=== PATIENT | female | born 1990 | race Caucasian/White ===

== ENCOUNTER 2017-04-07 07:49 | Inpatient (IN) | payer MEDICAID ==
[~2017-04-07 07:49] MED LIST: HYDR453.2 TOP; IBUP-1542 PO; TRAM50TA2 PO
[2017-04-07] MEDS ORDERED: LACTATED RINGER'S 1,000 ML IV SCH ×4 (08:05→08:45)
[2017-04-07] MEDS ORDERED: LACTATED RINGER'S 1,000 ML IV PRN ×4 (08:30→08:45)
[2017-04-07] MEDS ORDERED: CARBOPROST 250 MCG INJ IM PRN ×5 (08:30→12:30)
[2017-04-07] MEDS ORDERED: OXYTOCIN 30 UNITS/LR 500 ML IV SCH ×9 (08:30→11:30)
[2017-04-07] MEDS ORDERED: BUTORPHANOL 2 MG INJ IV PRN ×8 (08:30→08:45)
[2017-04-07] MEDS ORDERED: LIDOCAINE 1% (MPF) 30 ML INJ INJ PRN ×4 (08:30→08:45)
[2017-04-07] MEDS ORDERED: METHYLERGONOVINE 0.2 MG INJ IM PRN ×5 (08:30→12:30)
[2017-04-07] MEDS ORDERED: OXYTOCIN 30 UNITS/LR 500 ML IV PRN ×5 (08:30→12:30)
[2017-04-07] MEDS ORDERED: MISOPROSTOL 200 MCG TAB PR PRN ×5 (08:30→12:30)
[2017-04-07 08:32] LABS: BASOPHILS % 0.1 % (0.0-2.0); EOSINOPHILS % 0.4 % (0.0-7.0); HEMOGLOBIN 12.8 g/dl (12.0-16.0); LYMPHOCYTES % 22.8 % (15.0-51.0); MEAN CORPUSCULAR HEMOGLOBIN 27.2 pg (29.0-33.0); MEAN CORPUSCULAR HGB CONC 32.8 g/dl (32.0-37.0); MEAN CORPUSCULAR VOLUME 82.8 fl (82.0-101.0); MEAN PLATELET VOLUME 11.7 fl (7.4-10.4); MONOCYTE # 0.6 10^3/ul (0.3-0.9); MONOCYTES % 6.4 % (0.0-11.0); NEUTROPHIL # 6.2 10^3/ul (1.6-7.5); NEUTROPHILS % 69.6 % (39.0-77.0); PLATELET COUNT 182 10^3/UL (140-415); RED BLOOD COUNT 4.71 10^6/ul (4.20-5.40); WHITE BLOOD COUNT 8.9 10^3/ul (4.8-10.8)
[2017-04-07 08:44] LABS: INR 0.98
[2017-04-07 08:45] LABS: PARTIAL THROMBOPLASTIN TIME 26.8 Sec (25.0-35.0)
--- NOTE | 2017-04-07 09:40 | RADRPT ---
PROCEDURE: US OB. CLINICAL INDICATION: Low DWAYNE , pain TECHNIQUE: Transabdominal views of the pelvis are available for review. COMPARISON: No prior studies are available for comparison. FINDINGS: There is a single intrauterine gestation in a vertex position. The heart rate is noted at 130 bpm. The placenta is anterior. There is no evidence of placental abruption or previa. RPTAT: AA IMPRESSION: Vertex position. The placenta is anterior. There is no evidence of placental abruption or previa. .Jose Silveira MD, MD Date Time Electronically viewed and signed by .Jose Silveira MD, on 04/07/2017 09:40 .S/
--- NOTE | 2017-04-07 09:50 | HP ---
Date/Time of Note Date/Time of Note DATE: 04/07/17 TIME: 09:44 OB - History Hx of Present Free Text/Dictation 26 years old female EDC April 23 admitted to [facility] in active labor pelvic examination and admission cervix 6- 7 cm dilated 100% effaced vertex at -2 station intact membrane with a bulging bag patient transferred from triage to L&D anticipating vaginal delivery Chief Complaint: Labor contraction Estimated Due Date: Apr 23, 2017 : 4 Para: 3 Care: Good Care Ultrasounds: Normal mid trimester US Obstetrical Complications: None Medical Complications: None Past Family/Social History * Past Medical, Surgical, Family and Obstetric Histories reviewed from chart. Rubella: immune RPR/VDRL: Negative GBS Status: Negative HBsAG: Negative OB Admission Exam Physical Exam HEENT: WNL Heart: Rhythm Normal Lungs: Clear, Equal Abdomen: WNL Extremities: Normal Reflexes: Normal Cervical Dilatation: 6cm Effacement: 100% Station: -2 Membranes: Intact Heart Rate: 130's Accelerations: Accelerations Present Decelerations: Early Decelerations Varibility: Moderate Contractions on Admission: < 5 Minutes Apart Intensity: Firm Last 72 hours Lab Results CBC & BMP 04/07/17 07:55 OB Assessment/Plan Reason for admission: active labor Other plan: 26 years old EDC April 23, 2017, 37 weeks and 5 days admitted to the L& D at [facility] in active labor, pelvic examination on admission cervix 6-7 cm dilated 100% effaced vertex at -2 station intact membrane bulging bag, patient transferred from triage to L&D anticipating vaginal delivery. ANABEL KWON MD Apr 07, 2017 09:50
--- NOTE | 2017-04-07 12:25 | LDN ---
Date/Time of Note Date/Time of Note DATE: 04/07/17 TIME: 12:20 Delivery Summary Normal spontaneous vaginal delivery of a baby boy from OA position shoulders delivered without difficulty rest of the baby's body followed, baby had cord around the ankle, cord clamped after stopped pulsation, placenta spontaneous expulsion inspected complete, perineal vaginal exam no laceration, estimated blood loss 200 cc Weeks of Gestation 37 weeks 5 days Placenta Delivered: Spontaneously Meconium: none Episiotomy: No Laceration repair: None Anesthesia type: None Sponge & Needle done & correct: Yes All needle counts correct: Yes Any foreign bodies felt in the: No Problems: Delivery Information Sex Infant Sex: male Apgars 1 Minute: 8 5 Minute: 9 Suctioning Nose & mouth suctioned at talya: Yes Delee suction performed: No Umbilical Cord Umbilical cord with: 3 Vessels Cord presentations: nuchal cord Nuchal cord present X: 1 Cord Blood was obtained: Yes ANABEL KWON MD Apr 07, 2017 12:24
[2017-04-07] MEDS ORDERED: LACTATED RINGER'S 1,000 ML IV* SCH (12:30)
[2017-04-07] MEDS ORDERED: LANOLIN 7 GM TUBE TOP PRN ×2 (13:00→13:30)
[2017-04-07] MEDS ORDERED: BENZOCAINE 20% 56 ML SPRAY TOP PRN ×2 (13:00→13:30)
[2017-04-07] MEDS ORDERED: ONDANSETRON 4 MG INJ IV PRN ×2 (13:00→13:30)
[2017-04-07] MEDS ORDERED: HYDROCODONE/APAP (5/325) TAB PO PRN ×4 (13:00→13:30)
[2017-04-07] MEDS ORDERED: DIBUCAINE 1% 30 GM OINT PR PRN ×2 (13:00→13:30)
[2017-04-07] MEDS ORDERED: OXYCODONE/ASPIRIN (4.88/325) TAB PO PRN ×4 (13:00→13:30)
[2017-04-07] MEDS ORDERED: ACETAMINOPHEN 325 MG TAB PO PRN ×2 (13:00→13:30)
[2017-04-07] MEDS ORDERED: WITCH HAZEL/GLYCERIN PAD PR PRN ×2 (13:00→13:30)
[2017-04-07 14:00] VITALS: BP 123/65; PULSE 68; RESP 18
[2017-04-07 14:50] VITALS: BP 120/75; PULSE 72; RESP 20
[2017-04-07 16:00] VITALS: BP 109/67; PULSE 64; RESP 19
[2017-04-07] MEDS: OXYTOCIN 30 UNITS/LR 500 ML IV SCH ×3 (16:04→21:32)
[2017-04-07] MEDS: IBUPROFEN 600 MG TAB PO SCH ×3 (17:33→23:40)
[2017-04-07 20:00] VITALS: BP 112/67; PULSE 71; RESP 19
[2017-04-07] MEDS: SENNA/DOCUSATE NA (8.6MG/50MG) TAB PO SCH ×2 (21:00)
[2017-04-08] MEDS: OXYTOCIN 30 UNITS/LR 500 ML IV SCH (01:16)
[2017-04-08 04:15] VITALS: BP 92/51; PULSE 74; RESP 18
[2017-04-08] MEDS: IBUPROFEN 600 MG TAB PO SCH ×8 (05:38→23:22)
[2017-04-08 08:10] VITALS: BP 102/52; PULSE 81; RESP 18
[2017-04-08 08:32] LABS: BASOPHILS % 0.2 % (0.0-2.0); EOSINOPHILS # 0.1 10^3/ul (0.0-0.5); EOSINOPHILS % 0.8 % (0.0-7.0); HEMATOCRIT 34.8 % (37.0-47.0); HEMOGLOBIN 11.4 g/dl (12.0-16.0); LYMPHOCYTES # 2.3 10^3/ul (0.8-2.9); LYMPHOCYTES % 22.2 % (15.0-51.0); MEAN CORPUSCULAR HEMOGLOBIN 27.3 pg (29.0-33.0); MEAN CORPUSCULAR HGB CONC 32.8 g/dl (32.0-37.0); MEAN CORPUSCULAR VOLUME 83.5 fl (82.0-101.0); MEAN PLATELET VOLUME 11.9 fl (7.4-10.4); MONOCYTE # 0.5 10^3/ul (0.3-0.9); MONOCYTES % 5.1 % (0.0-11.0); NEUTROPHIL # 7.3 10^3/ul (1.6-7.5); PLATELET COUNT 162 10^3/UL (140-415); RED BLOOD COUNT 4.17 10^6/ul (4.20-5.40); RED CELL DISTRIBUTION WIDTH 14.5 % (11.5-14.5); WHITE BLOOD COUNT 10.3 10^3/ul (4.8-10.8)
[2017-04-08] MEDS: SENNA/DOCUSATE NA (8.6MG/50MG) TAB PO SCH ×4 (09:00→21:42)
--- NOTE | 2017-04-08 09:29 | QN ---
Documentation Comment day 1 Afebrile Vital signs are stable Abdomen soft Uterus firm Lochia normal Remedies normal ANABEL KWON MD Apr 08, 2017 09:29
[2017-04-08 16:00] VITALS: BP 97/52; PULSE 77; RESP 18
[2017-04-08 20:00] VITALS: BP 100/62; PULSE 74; RESP 20
[2017-04-09 03:22] VITALS: BP 105/59; PULSE 70; RESP 20
[2017-04-09] MEDS: IBUPROFEN 600 MG TAB PO SCH ×5 (05:26→11:59)
[2017-04-09] MEDS: SENNA/DOCUSATE NA (8.6MG/50MG) TAB PO SCH ×2 (08:26→09:00)
[2017-04-09 08:27] VITALS: BP 103/56; PULSE 78; RESP 19
[2017-04-09] MEDS ORDERED: MEASLES,MUMPS,RUBELLA VACCINE INJ SC* ONE ×2 (09:00)
--- NOTE | 2017-04-09 09:36 | PD.PPDC ---
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
--- NOTE | 2017-04-09 09:42 | DS ---
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 Home Meds Active Scripts Ibuprofen* (Motrin*) 600 Mg Tab, 600 MG PO Q6H Y for PAIN AND OR ELEVATED TEMP, #30 TAB Prov:ANNETTE KIRKLAND PA-C 02/14/16 Ibuprofen* (Motrin*) 600 Mg Tab, 600 MG PO Q6, #20 TAB Prov:PERLA MAGAÑA MD 02/08/16 Tramadol HCl (Tramadol HCl) 50 Mg Tablet, 50 MG PO Q4 Y for PAIN, #20 TAB Prov:PERLA MAGAÑA MD 02/08/16 Hydrocortisone* Topical (Hydrocortisone* Topical) 1%-28.3 Gm Oint, 1 APPLIC TOP BID Y for ITCHING, #1 TUB Prov:DWAYNE RAE NP 10/31/15 Follow-up Plan instructions given recommended to make appointment to be seen at the clinic in 2 weeks Primary Care Provider Care Physician No Primary Time spent on discharge: < 30 minutes ANABEL KWON MD Apr 09, 2017 09:42
== END 2017-04-09 14:15 | disposition home or self-care (01) | DRG 775 ==
LOC: L-D 07:49 → OBT 07:49 → L-D 07:52 → OBT 07:52 → UNDOADMIN 07:54 → L-D 07:54 → OBT 07:54 → PP1 14:05 → EDSTATUS 04-23 08:42
PROVIDERS: ADMIT Obstetrics & Gynecology; ATTEND Obstetrics & Gynecology
PROC: 10E0XZZ Delivery of Products of Conception, External Approach (ICD-10-PCS; principal; 2017-04-07)
DX: O69.89X0 Labor and delivery complicated by other cord complications, not applicable or unspecified (principal); Z37.0 Single live birth; Z3A.37 37 weeks gestation of pregnancy
CPT/HCPCS: 76815; 85025; 85610; 85730; 86592; 86900; 86901; 99464; A4310; J0595; J2590; J7120

== ENCOUNTER 2018-12-24 13:46 | Outpatient (CLI) | payer MEDICAID ==
[~2018-12-24] VITALS: Ht 139.7 cm; Wt 74.0 kg
[~2018-12-24 13:46] MED LIST changes: +DOCU-144 PO; +PNV11TAB PO; -TRAM50TA2 PO
[2018-12-24 14:26] VITALS: Ht 139.7 cm; Wt 74.0 kg
[2018-12-24 14:30] VITALS: BP 117/65; PULSE 89; RESP 19
--- NOTE | 2018-12-24 16:27 | TRIAGE ---
OB Triage Datetime Report Generated by CPN: 12/24/2018 16:26 Datetime: 12/24/2018 15:59 Labor Evaluation Frequency: IRREGULAR Monitor Mode: External Duration (sec)2399: 60 Quality: Mild Pattern: Normal: <= 5 Contractions in 10 Minutes Intensity IUP (mmHg): 300 Resting Tone [place]: Relaxed Heart Rate FHR Baseline Rate: 130 Monitor Mode: External US Variability: Moderate 6-25 bpm Accelerations: 15X15 Decelerations: None Category: Category I Datetime: 12/24/2018 15:58 Vaginal Exam Dilatation (cms): 0.0 Effacement (%): 0 Station: -3 Exam By: Michael MASTEROMARALEXIS Datetime: 12/24/2018 14:37 Assessment Type: Triage Maternal Assessment Level of Consciousness: Keenly Alert, Responsive DTR's/Clonus: DTRs 2+; No Clonus Headache: Denies Blurred Vision: No Respiratory Effort: Unlabored; Regular Rhythm; Equal Expansion Breath Sounds, Left: Clear and Equal Breath Sounds, Right: Clear and Equal Nausea/Vomiting: Denies RUQ Epigastric Pain: Denies Lower Extremities Edema: None Degree: None Upper Extremities Edema: None Degree: None Facial Edema: None Fall Risk Assessment History of Falling: (0) No Secondary Diagnosis: (0) No Ambulatory Aid: (0) Bedrest/Nurse Assist IV Therapy: (0) No Gait: (0) Normal/Bedrest/Immobile Mental Status: (0) Oriented to Own Ability Fall Score: 0 Fall Risk Score Definition: No Risk: No action required Datetime: 12/24/2018 14:35 Time of Arrival: 12/24/2018 13:39 EGA: 38.3 Arrived By: Ambulatory Arrived From: Office Chief Complaint: R/O DVT AND LABOR Movement: Present Contractions: Denies/Absent Rupture of Membranes: Denies Vaginal Bleeding: None Vaginal Discharge: Denies Recent Sexual Intercouse: Denies Abdominal Trauma: Not Applicable Patient Complaints: Other Time Provider Notified: 12/24/2018 15:58 Provider Notified: DR HARRIS Initial Plan: NST BPP AND DOPPLER STUDY
--- NOTE | 2018-12-25 02:20 | PN ---
Triage Information Date/Time Reason for visit: Vaginal uterine contractions and rule out DVT Weeks of Gestation 38 weeks and 3 days /Para -0-0-4 Diabetes: none Hypertention: none Objective Vital Signs Date Temp Pulse Resp B/P (MAP) Pulse Ox O2 O2 Flow FiO2 Time Delivery Rate 12/24/18 98.5 89 19 117/65 High Flow 14:30 (82) Heart Rate: 130's Contractions: 6-10 Minutes Apart Disposition: Discharge Assessment/Plan 28 years old -0-0-4 with single intrauterine at 38 weeks and 3 days referred from clinic for rule out labor and DVT for bilateral lower extremity edema. She states good movement. She denies nausea, vomiting, shortness of breath, chest pain, headache, visual changes, vaginal bleeding or LOF. -FHR: No sign of metabolic acidosis- Category I -Contractions: Irregular -SVE: Closed/soft/-3/cephalic/intact, no cervical changes in repeat exam -Ultrasound performed: Normal DWAYNE, BPP 8 out of 8 -Symptoms and sign of labor, preeclampsia, kick count discussed with patient, she voiced understanding. All of her questions answered. -Patient was discharged home in stable condition with the appropriate discharge instructions provided. I would like patient to have close follow-up with her primary physician or outpatient clinic in 1-2 days or return to triage for worsening symptoms or any other urgent concerns. TODD HARRIS Dec 25, 2018 02:20
== END 2018-12-24 16:30 | disposition home or self-care (01) ==
LOC: OBT 13:46 → L-D 13:46 → OBT 16:30
PROVIDERS: ATTEND Obstetrics & Gynecology
DX: O47.1 False labor at or after 37 completed weeks of gestation (principal); Z3A.38 38 weeks gestation of pregnancy
CPT/HCPCS: 76818; 93970; Z7500; G0463

== ENCOUNTER 2018-12-29 16:21 | Inpatient (IN) | payer MEDICAID ==
[~2018-12-29] VITALS: Ht 142.2 cm; Wt 74.3 kg
[~2018-12-29 16:21] MED LIST changes: -HYDR453.2 TOP
[2018-12-29 17:05] VITALS: Ht 142.2 cm; Wt 74.3 kg
[2018-12-29 17:06] VITALS: BP 119/63; PULSE 113; RESP 18
--- NOTE | 2018-12-29 20:00 | TRIAGE ---
OB Triage Datetime Report Generated by CPN: 12/29/2018 20:00 Datetime: 12/29/2018 19:51 Vaginal Exam Dilatation (cms): 3.0 Effacement (%): 50 Station: -3 Exam By: Dr Reiche Datetime: 12/29/2018 19:16 Labor Evaluation Frequency: x3 Monitor Mode: External Duration (sec)2399: 60-100 Quality: Mild Resting Tone [place]: Relaxed Heart Rate FHR Baseline Rate: 135 Monitor Mode: External US FHR Baseline Changes: No Baseline Change Variability: Moderate 6-25 bpm Accelerations: 15X15 Decelerations: None Category: Category I Datetime: 12/29/2018 19:12 Membrane Status: Intact Datetime: 12/29/2018 18:15 Labor Evaluation Frequency: x1 Monitor Mode: External Duration (sec)2399: 110 Quality: Mild Resting Tone [place]: Relaxed Heart Rate FHR Baseline Rate: 135 Monitor Mode: External US FHR Baseline Changes: No Baseline Change Variability: Moderate 6-25 bpm Accelerations: 15X15 Decelerations: None Category: Category I Datetime: 12/29/2018 17:12 Stage of : OB Triage Assessment Type: Triage Maternal Assessment Level of Consciousness: Keenly Alert, Responsive DTR's/Clonus: DTRs 2+; No Clonus Headache: Denies Blurred Vision: No Respiratory Effort: Unlabored; Regular Rhythm; Equal Expansion Breath Sounds, Left: Clear and Equal Breath Sounds, Right: Clear and Equal Nausea/Vomiting: Denies RUQ Epigastric Pain: Denies Lower Extremities Edema: Bilateral Lower Extremities Degree: 1+ Upper Extremities Edema: None Degree: None Facial Edema: None Temperature Route: Oral Fall Risk Assessment History of Falling: (0) No Secondary Diagnosis: (0) No Ambulatory Aid: (0) Bedrest/Nurse Assist IV Therapy: (0) No Gait: (0) Normal/Bedrest/Immobile Mental Status: (0) Oriented to Own Ability Fall Score: 0 Fall Risk Score Definition: No Risk: No action required Labor Evaluation Frequency: x1 Monitor Mode: External Duration (sec)2399: 50 Quality: Mild Resting Tone [place]: Relaxed Heart Rate FHR Baseline Rate: 135 Monitor Mode: External US FHR Baseline Changes: No Baseline Change Variability: Moderate 6-25 bpm Accelerations: 15X15 Decelerations: None Category: Category I Pain Assessment Pain Scale: 0 Pain Presence: None/Denies Pain Type: N/A Datetime: 12/29/2018 17:10 Time of Arrival: 12/29/2018 16:14 EGA: 39.1 Arrived By: Ambulatory Arrived From: Office Chief Complaint: pt is here from the office for macrosomia Movement: Present Contractions: Denies/Absent Rupture of Membranes: Denies Vaginal Bleeding: None Vaginal Discharge: Denies Recent Sexual Intercouse: Denies Abdominal Trauma: Not Applicable Patient Complaints: None Time Provider Notified: 12/29/2018 19:50 Provider Notified: Dr Boudreaux Initial Plan: NST Datetime: 12/24/2018 14:37 Fall Score: 0 Fall Risk Score Definition: No Risk: No action required Datetime: 12/24/2018 14:35 EGA: 38.3
[2018-12-29] MEDS ORDERED: OXYTOCIN 30 UNITS/LR 500 ML IV PRN (20:30)
[2018-12-29] MEDS ORDERED: IBUPROFEN 600 MG TAB PO PRN (20:30)
[2018-12-29] MEDS ORDERED: BUTORPHANOL 2 MG INJ IV PRN (20:30)
[2018-12-29] MEDS ORDERED: METHYLERGONOVINE 0.2 MG INJ IM PRN (20:30)
[2018-12-29] MEDS ORDERED: OXYTOCIN 30 UNITS/LR 500 ML IV SCH ×3 (20:30)
[2018-12-29] MEDS ORDERED: OXYCODONE/ASPIRIN (4.88/325) TAB PO PRN (20:30)
[2018-12-29] MEDS ORDERED: MISOPROSTOL 200 MCG TAB PR PRN (20:30)
[2018-12-29] MEDS ORDERED: LIDOCAINE 1% (MPF) 30 ML INJ INJ PRN (20:30)
[2018-12-29] MEDS ORDERED: CARBOPROST 250 MCG INJ IM PRN (20:30)
[2018-12-29] MEDS: LACTATED RINGER'S 1,000 ML IV SCH (20:54)
[2018-12-29] MEDS ORDERED: ACETAMINOPHEN 500 MG TAB PO STA (21:54)
[2018-12-30] MEDS: LACTATED RINGER'S 1,000 ML IV SCH ×2 (05:06→22:21)
[2018-12-30] MEDS: BUTORPHANOL 2 MG INJ IV PRN ×2 (08:00→20:38)
--- NOTE | 2018-12-30 14:08 | PREAC ---
Date/Time of Note Date/Time of Note DATE: 12/30/18 TIME: 14:07 Anesthesia Eval and Record Evaluation Time Pre-Procedure Interview DATE: 12/30/18 TIME: 14:07 Age 28 Sex female NPO: Other Preoperative diagnosis labor pain Planned procedure epidural Past Medical History Past Medical History: None Surgery & Anesthesia Issues No known issue Meds Anticoagulation: No Beta Neto within 24 hr: No Reason Beta Neto not given: Pt. not on B-Neto Reported Medications [id number] ( 19) 1 Each Tablet, 1 TAB PO DAILY, TAB 12/24/18 Discontinued Scripts Hydrocortisone* Topical (Hydrocortisone* Topical) 1%-28.3 Gm Oint, 1 APPLIC TOP BID PRN for ITCHING, #1 TUB Prov:DWAYNE RAE MANAGER OF APPLICATIONS DEVELOPMENT 10/31/15 Current Medications Lactated Ringer's 1,000 ml @ 125 mls/hr Q8H IV Last administered on 12/30/18at 05:06; Admin Dose 125 MLS/HR; Start 12/29/18 at 20:02 Butorphanol Tartrate (Stadol) 1 mg Q2H PRN IV .PAIN SCALE 1-5; Start 12/29/18 at 20:30 Butorphanol Tartrate (Stadol) 2 mg Q2H PRN IV .PAIN SCALE 6-10 Last administered on 12/30/18at 08:00; Admin Dose 2 MG; Start 12/29/18 at 20:30 Lidocaine (Xylocaine 1% (Mpf)) 30 ml ONCE PRN INJ .EPISIOTOMY; Start 12/29/18 at 20:30 Oxytocin/Lactated Ringer's 500 ml @ 500 mls/hr ONCE POST IV ; Start 12/29/18 at 20:30 Oxytocin/Lactated Ringer's 500 ml @ 125 mls/hr POST IV ; Start 12/29/18 at 20:30 Ibuprofen (Motrin) 600 mg ONCE PRN PO .PAIN 1-5; Start 12/29/18 at 20:30 Oxycodone/Aspirin (Percodan) 2 tab ONCE PRN PO .PAIN 6-10; Start 12/29/18 at 20:30 Oxytocin/Lactated Ringer's 500 ml @ 0 mls/hr ONCE PRN IV .VAGINAL BLEEDING; Start 12/29/18 at 20:30 Methylergonovine Maleate (Methergine) 0.2 mg ONCE PRN IM .VAGINAL BLEEDING; Start 12/29/18 at 20:30 Carboprost Tromethamine (Hemabate) 250 mcg ONCE PRN IM .VAGINAL BLEEDING; Start 12/29/18 at 20:30 Misoprostol (Cytotec) 1,000 mcg ONCE PRN UT .VAGINAL BLEEDING; Start 12/29/18 at 20:30 Oxytocin/Lactated Ringer's 500 ml @ 0 mls/hr FOR INDUCTION IV Last administered on 12/30/18at 01:10; Admin Dose 1 MLS/HR; Start 12/29/18 at 20:30 Meds reviewed: Yes Allergies Coded Allergies: No Known Allergy (Unverified , 06/18/14) Allergies Reviewed: Yes Labs/Studies Labs Reviewed: Reviewed by anesthesiologist Result Diagram: 12/29/182044 Laboratory Tests 12/29/18 20:45 Blood Bank Test 12/29/18 20:45 Antibody Screen NEGATIVE Blood Type O POSITIVE Rh Immune Globulin Candidate NO test: N/A Pre-procedure Exam Last vitals Vital Signs Date Temp Pulse Resp B/P (MAP) Pulse Ox O2 O2 Flow FiO2 Time Delivery Rate 12/29/18 98.2 113 18 119/63 Room Air 17:06 (81) Airway: Adequate mouth opening, Adequate thyromental dist Mallampati: Mallampati IV Teeth: Normal Lung: Normal Heart: Normal ASA Physical Status ASA physical status: 2 Emergency: None Pre-operative Attestations Prior to commencing anesthesia and surgery, the patient was re-evaluated, there was verification of: *The patient's identity *The results of appropriate recent lab work and preoperative vital signs *The above evaluation not changing prior to induction *Anesthetic plan, risk benefits, alternative and complications discussed with patient/family; questions answered; patient/family understands, accepts and wishes to proceed. SUSAN GEIGER DO Dec 30, 2018 14:08
[2018-12-30] MEDS ORDERED: FENTAnyl 2MCG/ML-ROPIV 0.2% 100 ML ONE (14:10)
--- NOTE | 2018-12-30 14:29 | PAC ---
Date/Time of Note Date/Time of Note DATE: 12/30/18 TIME: 14:29 Post-Anesthesia Notes Post-Anesthesia Note Last documented vital signs Vital Signs Date Temp Pulse Resp B/P (MAP) Pulse Ox O2 O2 Flow FiO2 Time Delivery Rate 12/30 98 80 18 110/69 Room Air Activity: WNL Respiratory function: WNL Cardiovascular function: WNL Mental status: Baseline Pain reasonably controlled: Yes Hydration appropriate: Yes Nausea/Vomiting absent: Yes SUSAN GEIGER DO Dec 30, 2018 14:29
[2018-12-30] MEDS ORDERED: FENTAnyl 2MCG/ML-ROPIV 0.2% 100 ML BAG EPI SCH (14:30)
[2018-12-30] MEDS ORDERED: NALOXONE (0.4 MG/ML) INJ IV PRN (14:30)
[2018-12-30] MEDS ORDERED: ACETAMINOPHEN 500 MG TAB PO STA (17:57)
[2018-12-30] MEDS ORDERED: ACETAMINOPHEN 500 MG TAB ONE (18:02)
--- NOTE | 2018-12-30 18:39 | HP ---
Date/Time of Note Date/Time of Note DATE: 12/30/18 TIME: 18:36 OB - History Hx of Present Free Text/Dictation 28-year-old -0-0-4 with single intrauterine at 39 weeks and 1 day was admitted for induction of labor for LGA yesterday. She states good movement. She denies nausea, vomiting, shortness of breath, chest pain, headache, visual changes, vaginal bleeding or LOF. Chief Complaint: Induction of labor Estimated Due Date: Jan 04, 2019 : 5 Para: 4 Spontaneous : 0 Therapeutic : 0 Care: Good Care Ultrasounds: Normal mid trimester US Obstetrical Complications: None Medical Complications: None Past Family/Social History * Past Medical, Surgical, Family and Obstetric Histories reviewed from chart. Blood Type: O+ Rubella: immune RPR/VDRL: Negative GBS Status: Negative HBsAG: Negative OB Admission Exam Vital Signs Vital Signs Vital Signs Date Temp Pulse Resp B/P (MAP) Pulse Ox O2 O2 Flow FiO2 Time Delivery Rate 12/29/18 98.2 113 18 119/63 Room Air 17:06 (81) Physical Exam HEENT: WNL Heart: Rhythm Normal Lungs: Clear Abdomen: WNL Extremities: Normal Reflexes: Normal Cervical Dilatation: 1cm Effacement: 25% Station: -3 Membranes: Intact Heart Rate: 140's Accelerations: Accelerations Present Decelerations: No Decelerations Varibility: Moderate Contractions on Admission: >10 Minutes Apart Last 72 hours Lab Results CBC & BMP 12/29/18 20:45 OB Assessment/Plan Other plan: 28-year-old -0-0-4 at 39 weeks and 1 day admitted for induction of labor for LGA -FHR: Category I -Continuous EFM, toco -CBC, blood type and screen -Cytotec per per protocol and then Pitocin as needed -Analgesia options with R/B/A discussed in detail with patient -Epidural per patient request -Please see the orders -O+/Rubella: Immune -GBS: Negative Admission, procedures, expectations, risks and possible complications have been discussed in detail with the patient. Risk of vaginal delivery including but not limited to bleeding, infection, cervical laceration, placental retention, injury to fetus, blood transfusion, blood transfusion related infection, risk of anesthesia, adhesion, cervical laceration, episiotomy/laceration, possible delivery with risk of bleeding, infection, injury to other organs (bowel, bladder, ureter, vessels, nerves), injury to fetus, blood transfusion, blood transfusion related infection, risk of anesthesia, scar and hernia formation, needs for future , removal of uterus or any other indicated surgery discussed with the patient. She expressed understanding and repeats the risks. All of her questions were answered. She signed the informed consent. PHYSICIAN'S VERIFICATION OF INFORMED CONSENT The patient was counseled regarding the procedure, its indications, risks, potential complications and alternatives and any questions were answered. Consent was obtained. PLANNED PROCEDURE/TREATMENT: Vaginal delivery, episiotomy, repair of laceration possible delivery TODD HARRIS Dec 30, 2018 18:39
--- NOTE | 2018-12-30 18:42 | LDN ---
Date/Time of Note Date/Time of Note DATE: 12/30/18 TIME: 18:39 Delivery Summary 28-year-old -0-0-4 with single intrauterine at 39 weeks and 2 days delivered a viable female over intact perineum. Nose and mouth suction. Rest of body delivered. Cord clamp and cut after stopping pulsation. Baby given to the nurse. Placenta delivered spontaneously and intact with three-vessel cord. Patient tolerated procedure well. Weight 3760 g - 8 pound 5 ounces 8 at 1 minutes and 9 at 5 minutes EBL 150 mL Weeks of Gestation 39 weeks and 2 days Placenta Delivered: Spontaneously Meconium: none Episiotomy: No Estimated blood loss: 150 Sponge & Needle done & correct: Yes All needle counts correct: Yes Any foreign bodies felt in the: No Infant Delivery Information Sex Infant Sex: female Apgars 1 Minute: 8 5 Minute: 9 10 Minute: 10 Suctioning Nose & mouth suctioned at talya: Yes Umbilical Cord Umbilical cord with: 3 Vessels Cord presentations: no nuchal cord Cord Blood was obtained: Yes Mother & Baby Disposition Disposition Mom & Baby to Maternity; Good: Yes TODD HARRIS Dec 30, 2018 18:42
[2018-12-30 20:00] VITALS: BP 131/76; PULSE 81; RESP 18
[2018-12-30] MEDS ORDERED: IBUPROFEN 600 MG TAB PO SCH (21:00)
[2018-12-30] MEDS: IBUPROFEN 600 MG TAB PO SCH (23:35)
[2018-12-31] MEDS: LACTATED RINGER'S 1,000 ML IV SCH ×2 (01:30→04:02)
[2018-12-31 04:00] VITALS: BP 126/59; PULSE 77; RESP 19
[2018-12-31] MEDS: IBUPROFEN 600 MG TAB PO SCH ×3 (05:44→17:18)
[2018-12-31 08:00] VITALS: BP 112/53; RESP 18
[2018-12-31] MEDS ORDERED: DEXTROSE 5%-LR 1,000 ML IV SCH (09:31)
[2018-12-31] MEDS ORDERED: LACTATED RINGER'S 1,000 ML IV* SCH (09:31)
[2018-12-31] MEDS: SENNA/DOCUSATE NA (8.6MG/50MG) TAB PO PRN (09:55)
[2018-12-31] MEDS ORDERED: LANOLIN HPA 1 PKT TOP PRN (10:00)
[2018-12-31] MEDS ORDERED: WITCH HAZEL/GLYCERIN PAD PR PRN (10:00)
[2018-12-31] MEDS ORDERED: OXYCODONE/ASPIRIN (4.88/325) TAB PO PRN (10:00)
[2018-12-31] MEDS ORDERED: METHYLERGONOVINE 0.2 MG INJ IM PRN (10:00)
[2018-12-31] MEDS ORDERED: ONDANSETRON 4 MG INJ IV PRN (10:00)
[2018-12-31] MEDS ORDERED: ACETAMINOPHEN 325 MG TAB PO PRN (10:00)
[2018-12-31] MEDS ORDERED: CARBOPROST 250 MCG INJ IM PRN (10:00)
[2018-12-31] MEDS ORDERED: ZOLPIDEM 5 MG TAB PO PRN (10:00)
[2018-12-31] MEDS ORDERED: OXYTOCIN 30 UNITS/LR 500 ML IV PRN (10:00)
[2018-12-31] MEDS ORDERED: BENZOCAINE 20% 56 ML SPRAY TOP PRN (10:00)
[2018-12-31] MEDS ORDERED: DIBUCAINE 1% 30 GM OINT TOP PRN (10:00)
[2018-12-31] MEDS ORDERED: DIPHENHYDRAMINE 50 MG INJ IV PRN (10:00)
[2018-12-31] MEDS ORDERED: MISOPROSTOL 200 MCG TAB PR PRN (10:00)
[2018-12-31 17:59] VITALS: BP 113/59; PULSE 84; RESP 18
[2018-12-31 20:00] VITALS: BP 109/65; PULSE 90; RESP 16
--- NOTE | 2018-12-31 21:19 | QN ---
Documentation Comment PPD#1 S/P No complaints VSS VS - Last 72 Hours, by Label Date Temp Pulse Resp B/P (MAP) Pulse Ox O2 O2 Flow FiO2 Time Delivery Rate 12/31/18 97.8 84 18 113/59 17:59 (77) 12/31/18 98.1 18 112/53 Room Air 08:00 (72) 12/31/18 98.4 77 19 126/59 Room Air 04:00 (81) 12/30/18 99.3 81 18 131/76 Room Air 20:00 (94) 12/29/18 98.2 113 18 119/63 Room Air 17:06 (81) Hematology - 72 Hrs Test 12/29/18 20:45 12/31/18 12:20 Hematocrit 36.1 % (37.0-47.0) L 34.0 % (37.0-47.0) L Hemoglobin 11.0 g/dl (12.0-16.0) L 10.3 g/dl (12.0-16.0) L Mean Corpuscular 23.1 pg (29.0-33.0) L 23.5 pg (29.0-33.0) L Hemoglobin Mean Corpuscular 30.5 g/dl (32.0-37.0) L 30.3 g/dl (32.0-37.0) L Hemoglobin Concent Mean Corpuscular Volume 75.8 fl (82.0-101.0) L 77.4 fl (82.0-101.0) L Mean Platelet Volume 11.6 fl (7.4-10.4) H 11.7 fl (7.4-10.4) H Platelet Count 176 10^3/UL (140-415) 146 10^3/UL (140-415) Red Blood Count 4.76 10^6/ul (4.20-5.40) 4.39 10^6/ul (4.20-5.40) Red Cell Distribution 16.0 % (11.5-14.5) H 16.1 % (11.5-14.5) H Width White Blood Count 7.2 10^3/ul (4.8-10.8) # 7.7 10^3/ul (4.8-10.8) Abd soft, fundus firm perineum intact ext NT A/P patient is stable and doing well Continue with routine care ACACIA SPEARS MD Dec 31, 2018 21:19
[2019-01-01] MEDS: IBUPROFEN 600 MG TAB PO SCH ×3 (00:42→11:44)
[2019-01-01 04:00] VITALS: BP 108/57; PULSE 71; RESP 16
[2019-01-01 08:00] VITALS: BP 124/59; PULSE 72; RESP 18
[2019-01-01] MEDS ORDERED: MEDROXYPROGESTERONE 150 MG INJ SYG IM STA (08:55)
--- NOTE | 2019-01-01 08:55 | DS ---
Date/Time of Note Date/Time of Note DATE: 01/01/19 TIME: 08:54 Obstetrical Discharge Record Final Diagnosis Final Diagnosis: Term delivered Other Final Diagnosis Date of admission 12/30/2018 Hospital day 2 Blood Type: O+ Rubella: immune RPR: Negative GBS: Negative HBsAg: Negative 1. Vaginal delivery- presented at 39 weeks and 1 day for induction of labor for suspected macrosomia. Underwent a vaginal delivery on 12/30/2018. Female weighing 3760 g. Estimated blood loss of 150 mL. Hospital course was complicated by acute blood loss anemia. To discharge she was ambulating, tolerating regular diet, voiding. Was bottle feeding. Fundus was firm and below the level of the umbilicus. Extremities were nontender to palpation. She desired Depo for contraception which was to be given prior to discharge. Vital Signs Date Temp Pulse Resp B/P (MAP) Pulse Ox O2 O2 Flow FiO2 Time Delivery Rate 01/01/19 98.0 71 16 108/57 Room Air 04:00 (74) Laboratory Tests Test 12/31/18 12:20 Hematocrit 34.0 % Hemoglobin 10.3 g/dl Platelet Count 146 10^3/UL White Blood Count 7.7 10^3/ul 2. Acute blood loss anemia-H/H was 10.3/34. Her vitals were stable. Condition on Discharge Physical Assessment Patient Condition: Stable LUIS CARRILLO MD Jan 01, 2019 08:55
[2019-01-01] MEDS: SENNA/DOCUSATE NA (8.6MG/50MG) TAB PO PRN (08:59)
[2019-01-02] MEDS ORDERED: MEASLES,MUMPS,RUBELLA VACCINE INJ SC* ONE (09:00)
[2019-01-02] MEDS ORDERED: DIPHTH/TET/ACEL PERTUSS (ADULT) 0.5 ML VIAL IM* ONE (09:00)
--- NOTE | 2019-01-02 15:38 | DELSUM ---
Delivery Summary A-C Datetime Report Generated by CPN: 01/02/2019 15:38 DELIVERY PERSONNEL Pit Recorder: Giana Salazar MATERNAL INFORMATION Delivery Anesthesia: Epidural Medications in Delivery: LR WITH 30 UNITS PITOCIN Delivery QBL (ml): 150 Placenta Cultured: No Maternal Complications: None Other Maternal Complications: macrosomnia LABOR SUMMARY EDC: 01/04/2019 00:00 No. Babies in Womb: 1 Attempted: No Labor Anesthesia: Epidural LABOR INFORMATION Reason for Induction: Macrosomia Onset of Labor: 12/29/2018 21:00 Complete Dilatation: 12/30/2018 16:40 Group B Beta Strep: Negative Antibiotics # of Doses: 0 Steroids Given: None Reason Steroids Not Administered: Not Applicable MEMBRANES Membranes Rupture Method: Artificial Rupture of Membranes: 12/30/2018 16:40 Length of Rupture (hr): 1.03 Amniotic Fluid Color: Clear Amniotic Fluid Amount: Large Amniotic Fluid Odor: Normal STAGES OF LABOR Stage 1 hr: 19 Stage 1 min: 40 Stage 2 hr: 1 Stage 2 min: 2 Stage 3 hr: 0 Stage 3 min: 6 Total Time in Labor hr: 20 Total Time in Labor min: 48 VAGINAL DELIVERY Episiotomy: None Laceration Extension: N/A Laceration Type: None Laceration Repair: No Initial Vag Sponge Count: 10 Final Vag Sponge Count: 10 Initial Vag Sharps Count: 1 Final Vag Sharps Count: 1 Sponge Count Correct: Yes Sharps Count Correct: Yes BABY A INFORMATION Infant Delivery Date/Time: 12/30/2018 17:42 Method of Delivery: Vaginal Born in Route : No : N/A Forceps: N/A Vacuum Extraction: N/A Shoulder Dystocia : No SHOULDER DYSTOCIA BABY A Infant Delivery Date/Time: 12/30/2018 17:42 PRESENTATION/POSITION BABY A Presentation: Cephalic Cephalic Presentation: Vertex Vertex Position: Left Occipital Anterior Breech Presentation: N/A PLACENTA INFORMATION BABY A Placenta Delivery Time : 12/30/2018 17:48 Placenta Method of Delivery: Spontaneous Placenta Status: Delivered SCORES BABY A Heart Rate 1 min: >100 bpm Resp Effort 1 min: Good Cry Reflex Irritability 1 min: Cough/Sneeze/Pulls Away Muscle Tone 1 min: Active Motion Color 1 min: Blue/Pale Resuscitation Effort 1 min: Tactile Stimulation SCORE 1 MIN: 8 Heart Rate 5 min: >100 bpm Resp Effort 5 min: Good Cry Reflex Irritability 5 min: Cough/Sneeze/Pulls Away Muscle Tone 5 min: Active Motion Color 5 min: Body Broad [place], Extremit Blue Resuscitation Effort 5 min: Tactile Stimulation SCORE 5 MIN: 9 INFORMATION BABY A Gestational Age at Delivery: 39.2 Gestational Status: Full Term- 39- 40.6 Weeks Outcome : Liveborn, with signs of life Condition : Stable Sex: Female IDENTIFICATION/MEDS BABY A ID Band Number: [id number] ID Band Location: Right Leg; Left Arm Sensor Applied: Yes Sensor Number: [id number] Sensor Location : Cord Clamp Vitamin K Given : Not Given Erythromycin Given: Not Given WEIGHT/LENGTH BABY A Infant Birthweight (gm): 3760 Weight (lb): 8 Weight (oz): 5 Length (in): 20.50 Length (cm): 52.07 CORD INFORMATION BABY A No. Cord Vessels: 3 Nuchal Cord : N/A Suction: Mouth; Nose ASSESSMENT BABY A Complications: None Physical Findings at Delivery: Within Normal Limits Respirations: Appears Normal Cephalometric Tracer/ALS Called : No Transferred To: Remains with Mother
== END 2019-01-01 15:00 | disposition home or self-care (01) | DRG 807 ==
LOC: OBT 16:21 → L-D 16:23 → OBT 20:06 → L-D 20:24 → PP1 12-30 19:03
PROVIDERS: ADMIT Obstetrics & Gynecology; ATTEND Obstetrics & Gynecology
PROC: 10E0XZZ Delivery of Products of Conception, External Approach (ICD-10-PCS; principal; 2018-12-30)
DX: O36.63X0 Maternal care for excessive fetal growth, third trimester, not applicable or unspecified (principal); Z37.0 Single live birth; O90.81 Anemia of the puerperium; Z3A.39 39 weeks gestation of pregnancy
CPT/HCPCS: 62322; 76815; 76818; 85025; 85610; 85730; 86592; 86850; 86900; 86901; G0463; J0595; J1050; J2590; J3010; J7120; J7121